=== PATIENT | female | born 2005 | race Two or more races ===

== ENCOUNTER 2023-05-03 14:34 | Emergency (ER) | payer SELFPAY ==
[2023-05-03] MEDS: Sulfamethoxazole/Trimethoprim 800-160 MG Tab PO ONE (15:49)
[2023-05-03] MEDS: Lidocaine 1% PF 2 ML SDV INJECT ONE (15:50)
== END 2023-05-03 16:06 | disposition home or self-care (01) ==
LOC: MW.ED 14:34
DX: L05.91 Pilonidal cyst without abscess (principal); Z75.8 Other problems related to medical facilities and other health care; Z79.899 Other long term (current) drug therapy
CPT/HCPCS: 10080; 99282; A9270; 10060; 99283; J3490

== ENCOUNTER 2023-06-13 21:47 | Emergency (ER) | payer BC ==
[2023-06-13 21:55] LABS: BASE EXCESS VENOUS -2.3 (-2.0-3.0); PH,VENOUS 7.32 (7.31-7.41)
[2023-06-13] MEDS: Sodium Chloride 0.9% 10 ML Syringe FLUSH PRN (21:56)
[2023-06-13] MEDS: Sodium Chloride 0.9% 1,000 ML IV ONE (21:56)
[2023-06-13] MEDS: Sodium Chloride 0.9% 2.5 ML Syringe FLUSH PRN (21:56)
[2023-06-13 22:00] LABS: BASOPHILS ABSOLUTE AUTO 0.06 K/uL (0.00-0.20); BASOPHILS PERCENT AUTO 0.5 % (0.0-1.0); EOSINOPHILS ABSOLUTE AUTO 0.17 K/uL (0.00-0.45); EOSINOPHILS PERCENT AUTO 1.4 % (0.0-6.0); HEMATOCRIT 40.6 % (37.0-47.0); HEMOGLOBIN 13.7 g/dL (12.0-16.0); IMMATURE GRAN ABSOLUTE AUTO 0.02 K/uL (0.00-0.05); IMMATURE GRAN PERCENT AUTO 0.2 % (0.0-0.4); LYMPHOCYTES ABSOLUTE AUTO 4.27 K/uL (1.00-4.80); LYMPHOCYTES PERCENT AUTO 36.4 % (24.0-44.0); MEAN CORPUSCULAR HEMOGLOBIN 29.7 pg (28.0-32.0); MEAN CORPUSCULAR HGB CONC 33.7 g/dL (32.0-36.0); MEAN CORPUSCULAR VOLUME 87.9 fL (83.0-99.0); MEAN PLATELET VOLUME 9.9 fL (9.4-12.3); MONOCYTES ABSOLUTE AUTO 0.95 K/uL (0.00-0.80); MONOCYTES PERCENT AUTO 8.1 % (0.0-8.0); NEUTROPHILS ABSOLUTE AUTO 6.27 K/uL (1.80-7.70); NEUTROPHILS PERCENT AUTO 53.4 % (41.0-71.0); PLATELET COUNT,PLT 282 K/uL (150-400); RED BLOOD CELL COUNT 4.62 M/uL (4.10-5.30); WHITE BLOOD CELL COUNT,WBC 11.74 K/uL (3.9-11.3)
[2023-06-13 22:23] LABS: PTT,PARTIAL THROMBOPLSTIN TIME 24.2 SEC (23.9-30.7)
[2023-06-13 22:37] LABS: ALANINE AMINOTRANSFERASE,ALT 14 IU/L (14-63); ALBUMIN 3.5 g/dL (3.4-5.0); ALKALINE PHOSPHATASE 74 U/L (46-116); ASPARTATE AMNIOTRANSFERASE,AST 17 IU/L (15-37); BILIRUBIN TOTAL 0.2 mg/dL (0.2-1.0); BLOOD UREA NITROGEN,BUN 10 mg/dL (7.0-18.0); CALCIUM 8.3 mg/dL (8.5-10.1); CARBON DIOXIDE,CO2 23.8 mmol/L (21.0-32.0); CHLORIDE,CL 104 mmol/L (98-107); CREATININE 0.8 mg/dL (0.6-1.0); EST CRCL DRUG DOSING (CG) 92.79 mL/min; ETHANOL BLOOD MEDICAL <3 mg/dL; GLUCOSE RANDOM 116 mg/dL (74-106); LIPASE 31 U/L (16-77); MAGNESIUM 1.9 mg/dL (1.8-2.4); POTASSIUM,K 2.9 mmol/L (3.5-5.1); PROTEIN TOTAL,TP 7.1 g/dL (6.4-8.2); SODIUM,NA 139 mmol/L (136-145); TSH ULTRASENSITIVE 1.67 uIU/mL (0.36-3.74)
[2023-06-13 22:44] LABS: D-DIMER QUANTITATIVE < 0.19 mg/L FEU (0.00-0.50)
[2023-06-13 22:45] LABS: ESTIMATED GFR 108 mL/min (>60); HCG QUANTITATIVE < 1.0 mIU/mL
[2023-06-13 22:45] LABS: LACTIC ACID 1.7 mmol/L (0.4-2.0)
[2023-06-13 23:02] LABS: CORONAVIRUS COVID-19 NAA NEGATIVE (NEGATIVE); INFLUENZA A NAA NEGATIVE (NEGATIVE); INFLUENZA B NAA NEGATIVE (NEGATIVE); RESPIRATORY SYNCYTIAL VIR NAA NEGATIVE (NEGATIVE)
[2023-06-13] MEDS: Potassium Chloride 20 MEQ Tab.ER PO ONE (23:10)
[2023-06-13 23:17] LABS: APPEARANCE,URINE CLEAR; BILIRUBIN,URINE NEGATIVE (NEGATIVE); COLOR,URINE YELLOW; GLUCOSE,URINE NEGATIVE (NEGATIVE); KETONES,URINE NEGATIVE (NEGATIVE); LEUKOCYTE ESTERASE,URINE NEGATIVE (NEGATIVE); NITRITE,URINE NEGATIVE (NEGATIVE); OCCULT BLOOD,URINE NEGATIVE (NEGATIVE); PROTEIN,URINE NEGATIVE (NEGATIVE); UROBILINOGEN,URINE 0.2 EU/dL (<2.0)
[2023-06-13 23:42] LABS: AMPHETAMINES SCREEN, URINE NEGATIVE (CUTOFF=500); BARBITURATE SCREEN,URINE NEGATIVE (CUTOFF=200); BENZODIAZEPINES SCREEN,URINE NEGATIVE (CUTOFF=150); BUPRENORPHINE SCREEN,URINE NEGATIVE (CUTOFF=10); METHADONE SCREEN, URINE NEGATIVE (CUTOFF=200); METHAMPHETAMINES SCREEN, URINE NEGATIVE (CUTOFF=500); OXYCODONE SCREEN,URINE NEGATIVE (CUT0FF=100); PCP SCREEN,URINE NEGATIVE (CUTOFF=25); THC SCREEN,URINE 20 NG/ML PRESUMPTIVE POSITIVE (CUTOFF=50)
== END 2023-06-13 23:58 | disposition home or self-care (01) ==
LOC: MW.ED 21:47
DX: R55 Syncope and collapse (principal); Z75.8 Other problems related to medical facilities and other health care
CPT/HCPCS: 0241U; 36415; 80053; 80305; 80307; 81003; 82803; 83605; 83690; 83735; 84443; 84484; 84702; 85025; 85379; 85730; 96361; 96374; 99285; A9270; J3360; J3490; J7030; 93005; 93010; 99282